=== PATIENT | male | born 1950 | race Caucasian/White ===

== ENCOUNTER 2016-09-09 22:17 | Emergency (ER) | payer MEDICAID, MEDICARE ==
[~2016-09-09] VITALS: Ht 175.3 cm; Wt 77.0 kg
[2016-09-09 23:36] LABS: ASPARTATE AMINO TRANSFERASE 260 U/L (15-37); BLOOD UREA NITROGEN 17 mg/dL (7-18)
[2016-09-09 23:41] LABS: IS PT STATUS REG ER OR PRE ER? YES
[2016-09-10] MEDS ORDERED: MAALOX/HYOSCYAMINE/LIDOCAINE 45 ML BTL PO ONE (00:30)
[2016-09-10] MEDS ORDERED: MAALOX/HYOSCYAMINE/LIDOCAINE 45 ML BTL ONE (00:49)
[2016-09-10 01:35] LABS: IS PT STATUS REG ER OR PRE ER? YES
[2016-09-10 05:22] VITALS: BP 124/68
== END 2016-09-10 05:31 | disposition home or self-care (01) ==
LOC: ED 23:58
DX: R10.13 Epigastric pain (principal); Z72.9 Problem related to lifestyle, unspecified; F10.220 Alcohol dependence with intoxication, uncomplicated; F17.200 Nicotine dependence, unspecified, uncomplicated
CPT/HCPCS: 36415; 71010; 80053; 80307; 84484; 85025; 85379; 93005; 99285